=== PATIENT | female | born 1950 | race Caucasian/White ===

== ENCOUNTER 2025-08-10 22:04 | Inpatient (IN) | payer MEDICARE, OTHER ==
[~2025-08-10] VITALS: Ht 162.6 cm; Wt 53.5 kg
[2025-08-10 23:00] LABS: PLATELET COUNT (AUTO) 204 K/uL (179-408); RED BLOOD CELL COUNT(AUTO) 4.05 MIL/uL (3.63-4.92); RED CELL DISTRIBUTION WIDTH 13.2 % (12.3-17.7); WHITE BLOOD COUNT (AUTO) 4.6 K/uL (3.8-11.8)
[2025-08-10 23:12] LABS: ASPARTATE AMINOTRANSFERASE 12 U/L (15-37); CREATININE 0.9 mg/dL (0.6-1.3); SODIUM SERUM 137 mmol/L (136-145); TOTAL PROTEIN, SERUM 7.3 g/dL (6.4-8.2); UREA NITROGEN, BLOOD 21 mg/dL (7-18)
[2025-08-10 23:30] LABS: ETHANOL < 3 MG/DL (0-10)
[2025-08-10] MEDS ORDERED: TRAZ-182 PO (23:47)
[2025-08-10] MEDS ORDERED: SACU1TAB7 PO (23:47)
[2025-08-10] MEDS ORDERED: INSU100V7 SQ (23:47)
[2025-08-10] MEDS ORDERED: SIMV5TAB59 PO (23:47)
[2025-08-10] MEDS ORDERED: APIX5TAB PO (23:47)
[2025-08-10] MEDS ORDERED: PANT40TA49 PO (23:47)
[2025-08-10] MEDS ORDERED: DULO40CA2 PO (23:47)
[2025-08-11 00:25] LABS: *BILIRUBIN,URIN NEGATIVE (NEGATIVE); *CLARITY,URINE CLEAR (CLEAR); *COLOR,URINE YELLOW (YELLOW); *KETONES,URINE 2+ (NEGATIVE); *PROTEIN,URINE NEGATIVE (NEGATIVE); *UROBILINOGEN,URINE 0.2 E.U./dl (NORMAL); LEUKOCYTE ESTERASE ,URINE NEGATIVE (NEGATIVE); NITRITE, URINE NEGATIVE (NEGATIVE); UGLUCOSE 3+ (NEGATIVE)
[2025-08-11 00:28] LABS: *BLOOD, URINE TRACE (NEGATIVE)
[2025-08-11 00:32] LABS: *AMPHETAMINE, URINE NEGATIVE (NEGATIVE); *BARBITURATE, URINE NEGATIVE (NEGATIVE); *BENZODIAZEPINE, URINE NEGATIVE (NEGATIVE); *CANNABINOID, URINE NEGATIVE (NEGATIVE); *COCCAINE, URINE NEGATIVE (NEGATIVE); *OPIATE, URINE NEGATIVE (NEGATIVE); *PHENCYCLIDINE SCREEN,URINE NEGATIVE (NEGATIVE); FENTANYL, URINE NEGATIVE (NEGATIVE)
[2025-08-11 00:42] LABS: SQUAMOUS EPITHELIAL CELL,UR MODERATE /HPF (NONE SEEN)
[2025-08-11 01:00] VITALS: BP 155/77
[2025-08-11] MEDS ORDERED: DEXTROSE 50% 50 ML DISP.SYRIN IV PRN ×2 (01:30→10:00)
[2025-08-11] MEDS ORDERED: ONDANSETRON 4 MG/2 ML VIAL IV PRN (01:30)
[2025-08-11] MEDS ORDERED: MAGNESIUM HYDROXIDE 30 ML LIQUID UDC PO PRN (01:30)
[2025-08-11] MEDS: IV NS 1000 ML 1,000 ML IV SCH (03:00)
[2025-08-11 03:16] VITALS: BP 149/61; TEMP 98.7; O2SAT 98
[2025-08-11] MEDS: QUETIAPINE FUMARATE 25 MG TABLET PO ONE ×2 (03:34→13:55)
[2025-08-11] MEDS: ACETAMINOPHEN 325 MG TABLET PO PRN (05:07)
[2025-08-11] MEDS: PANTOPRAZOLE SODIUM 40 MG TABLET.DR PO SCH (06:02)
[2025-08-11] MEDS: BLOOD SUGAR DIAGNOSTIC 1 EACH STRIP VI SCH ×2 (06:34→12:19)
[2025-08-11 06:40] LABS: PLATELET COUNT (AUTO) 194 K/uL (179-408); RED BLOOD CELL COUNT(AUTO) 3.82 MIL/uL (3.63-4.92); RED CELL DISTRIBUTION WIDTH 13.0 % (12.3-17.7); WHITE BLOOD COUNT (AUTO) 6.1 K/uL (3.8-11.8)
[2025-08-11 07:16] LABS: CREATININE 1.2 mg/dL (0.6-1.3); SODIUM SERUM 135 mmol/L (136-145); UREA NITROGEN, BLOOD 26 mg/dL (7-18)
[2025-08-11 07:47] VITALS: BP 129/60; TEMP 98.1; O2SAT 99
[2025-08-11] MEDS: INSULIN REGULAR, HUMAN 1000 UNIT/10 ML VIAL SQ PRN ×2 (08:17→12:26)
[2025-08-11] MEDS: APIXABAN 5 MG TABLET PO SCH (08:28)
[2025-08-11] MEDS: SACUBITRIL/VALSARTAN 49 MG-51 MG TABLET PO SCH (08:37)
[2025-08-11] MEDS: CULTURELLE CAPSULE PO SCH (10:24)
[2025-08-11 12:02] VITALS: BP 128/69; TEMP 97.8; O2SAT 97
[2025-08-11] MEDS: CIPROFLOXACIN IV 200 ML IV SCH (16:12)
[2025-08-11] MEDS: diphenhydrAMINE 25 MG CAP PO PRN (17:29)
[2025-08-11] MEDS: HYDROCORTISONE 1% CREAM 30 GM TUBE TP SCH (18:23)
[2025-08-11 19:30] VITALS: BP 114/52; TEMP 98.1; O2SAT 99
[2025-08-11] MEDS: SULFAMETH/TRIMETH 800/160 MG TABLET PO SCH (20:15)
[2025-08-11] MEDS: TRAZODONE 100 MG TABLET PO SCH (20:15)
[2025-08-11] MEDS: INSULIN REGULAR, HUMAN 300 UNITS/3 ML VIAL SQ PRN (20:34)
[2025-08-11] MEDS: INSULIN GLARGINE,HUM 300 UNITS/3 ML CARTRIDGE SQ SCH (20:34)
[2025-08-12] VITALS (7 sets, daily range): BP systolic 105–125; BP diastolic 45–71; TEMP 97.3–98.2; O2SAT 94–99
[2025-08-12] MEDS: LEVOTHYROXINE SODIUM 25 MCG TABLET PO SCH (06:02)
[2025-08-12 06:36] LABS: PLATELET COUNT (AUTO) 193 K/uL (179-408); RED BLOOD CELL COUNT(AUTO) 3.84 MIL/uL (3.63-4.92); RED CELL DISTRIBUTION WIDTH 12.9 % (12.3-17.7); WHITE BLOOD COUNT (AUTO) 5.9 K/uL (3.8-11.8)
[2025-08-12 07:05] LABS: CREATININE 0.8 mg/dL (0.6-1.3); SODIUM SERUM 138 mmol/L (136-145); UREA NITROGEN, BLOOD 22 mg/dL (7-18)
[2025-08-12] MEDS: LORAZEPAM 0.5 MG TABLET PO PRN (13:40)
[2025-08-12] MEDS: DIVALPROEX 125 MG TABLET.DR PO SCH (13:40)
[2025-08-13 00:33] VITALS: BP 103/50; TEMP 97.5; O2SAT 96
[2025-08-13 05:14] VITALS: BP 103/57; TEMP 98.2; O2SAT 97
[2025-08-13 06:54] LABS: PLATELET COUNT (AUTO) 198 K/uL (179-408); RED BLOOD CELL COUNT(AUTO) 4.02 MIL/uL (3.63-4.92); RED CELL DISTRIBUTION WIDTH 13.0 % (12.3-17.7); WHITE BLOOD COUNT (AUTO) 5.3 K/uL (3.8-11.8)
[2025-08-13 07:03] LABS: CREATININE 1.0 mg/dL (0.6-1.3); SODIUM SERUM 138 mmol/L (136-145); UREA NITROGEN, BLOOD 24 mg/dL (7-18)
[2025-08-13 07:57] VITALS: BP 155/65; TEMP 98.4; O2SAT 99
[2025-08-13] MEDS ORDERED: INSU100V28 SQ ×2 (08:11)
[2025-08-13] MEDS ORDERED: INSU100V7 SQ (08:11)
[2025-08-13 11:24] VITALS: BP 111/66; TEMP 97.7; O2SAT 97
[2025-08-13 15:12] VITALS: BP 118/90; TEMP 98; O2SAT 96
[2025-08-13 19:43] VITALS: BP 143/74; TEMP 97.8; O2SAT 97
[2025-08-13] MEDS: INSULIN GLARGINE,HUM 300 UNITS/3 ML CARTRIDGE SQ SCH (20:52)
[2025-08-13] MEDS ORDERED: LITHIUM OROTATE PO PRN (22:45)
[2025-08-13] MEDS ORDERED: NIACINAMIDE 500 MG PO PRN (22:45)
[2025-08-13] MEDS ORDERED: INOSITOL PO PRN (22:45)
[2025-08-14 00:28] VITALS: BP 112/55; TEMP 98; O2SAT 96
[2025-08-14 06:02] VITALS: BP 138/66; TEMP 97.8; O2SAT 97
[2025-08-14 06:46] LABS: PLATELET COUNT (AUTO) 198 K/uL (179-408); RED BLOOD CELL COUNT(AUTO) 4.26 MIL/uL (3.63-4.92); RED CELL DISTRIBUTION WIDTH 13.2 % (12.3-17.7); WHITE BLOOD COUNT (AUTO) 4.2 K/uL (3.8-11.8)
[2025-08-14 07:03] LABS: CREATININE 1.1 mg/dL (0.6-1.3); SODIUM SERUM 137 mmol/L (136-145); UREA NITROGEN, BLOOD 32 mg/dL (7-18)
[2025-08-14 07:12] LABS: BASOPHILS % (MANUAL) 1 % (0-2); EOSINOPHILS % (MANUAL) 2 % (0-8); LYMPHOCYTES % (MANUAL) 26 % (20-40); MONOCYTES % (MANUAL) 16 % (2-10); NEUTROPHILS % (MANUAL) 56 % (42-75); PLATELET ESTIMATE ADEQUATE
[2025-08-14 08:00] VITALS: BP 114/59; TEMP 98.6; O2SAT 99
[2025-08-14] MEDS ORDERED: INOSITOL PO PRN (08:55)
[2025-08-14] MEDS ORDERED: NIACINAMIDE 500 MG PO PRN (08:57)
[2025-08-14] MEDS: buPROPion XL 150 MG TAB.SR.24H PO SCH (10:18)
[2025-08-14] MEDS: FOLIC ACID 1 MG TABLET PO SCH (10:18)
[2025-08-14] MEDS: FERROUS SULFATE 325 MG TABEC PO SCH (10:19)
[2025-08-14 10:49] LABS: *BILIRUBIN,URIN NEGATIVE (NEGATIVE); *BLOOD, URINE NEGATIVE (NEGATIVE); *CLARITY,URINE CLEAR (CLEAR); *COLOR,URINE YELLOW (YELLOW); *KETONES,URINE NEGATIVE (NEGATIVE); *PROTEIN,URINE NEGATIVE (NEGATIVE); *UROBILINOGEN,URINE 0.2 E.U./dl (NORMAL); LEUKOCYTE ESTERASE ,URINE NEGATIVE (NEGATIVE); NITRITE, URINE NEGATIVE (NEGATIVE); UGLUCOSE 2+ (NEGATIVE)
[2025-08-14 11:23] LABS: SQUAMOUS EPITHELIAL CELL,UR FEW /HPF (NONE SEEN)
[2025-08-14 11:52] VITALS: BP 104/44; TEMP 98.6; O2SAT 99
[2025-08-14] MEDS ORDERED: BUPR-53 PO (15:12)
[2025-08-14] MEDS ORDERED: Patient May Use Own Med- Md Ok PO ×2 (15:12)
[2025-08-14] MEDS ORDERED: FOLI1TAB94 PO (15:12)
[2025-08-14] MEDS ORDERED: PANT40TA49 PO (15:12)
[2025-08-14] MEDS ORDERED: LEVO25TA9 PO (15:12)
[2025-08-14] MEDS ORDERED: LORA-258 PO (15:12)
[2025-08-14] MEDS ORDERED: TRAZ-257 PO (15:12)
[2025-08-14] MEDS ORDERED: FERR325T28 PO (15:12)
[2025-08-14] MEDS ORDERED: LACT1CAP57 PO (15:12)
[2025-08-14] MEDS ORDERED: INSU100V28 SQ ×2 (16:59)
[2025-08-14] MEDS ORDERED: LORA-259 PO (17:01)
[2025-08-14] MEDS ORDERED: MAGN100T PO (17:32)
[2025-08-14] MEDS ORDERED: [UNRECOGNIZED DRUG - OTHER] PO (17:33)
[2025-08-14] MEDS ORDERED: GABA PO (17:35)
[2025-08-14] MEDS ORDERED: [UNRECOGNIZED DRUG - OTHER] PO (17:36)
[2025-08-14] MEDS ORDERED: NIAC500T40 PO (17:37)
[2025-08-14] MEDS ORDERED: INOSITOL PO (17:39)
[2025-08-14] MEDS ORDERED: [UNRECOGNIZED DRUG - OTHER] PO (17:40)
[2025-08-14] MEDS ORDERED: [UNRECOGNIZED DRUG - OTHER] PO (17:41)
[2025-08-14] MEDS ORDERED: [UNRECOGNIZED DRUG - OTHER] PO (17:43)
[2025-08-14] MEDS ORDERED: BLOO-668 IN (17:45)
[2025-08-14] MEDS ORDERED: DEXT50DI5 IV (17:46)
[2025-08-14] MEDS ORDERED: MAGNESIUM GLYCINATE 200 MG PO SCH (21:00)
[2025-08-14] MEDS ORDERED: [UNRECOGNIZED DRUG - OTHER] PO SCH (21:00)
[2025-08-14] MEDS ORDERED: GABA PO SCH (21:00)
[2025-08-14] MEDS ORDERED: [UNRECOGNIZED DRUG - OTHER] PO SCH (21:00)
== END 2025-08-14 15:57 | DRG 637 ==
LOC: ER 22:15 → TELE3 08-11 01:37 → MEDSURG3 08-14 10:05
PROVIDERS: ATTEND Nurse Practitioner Acute Care
DX: E11.65 Type 2 diabetes mellitus with hyperglycemia (principal); G93.41 Metabolic encephalopathy; I50.22 Chronic systolic (congestive) heart failure; I42.9 Cardiomyopathy, unspecified; F03.94 Unspecified dementia, unspecified severity, with anxiety; F03.93 Unspecified dementia, unspecified severity, with mood disturbance; S22.42XD Multiple fractures of ribs, left side, subsequent encounter for fracture with routine healing; W19.XXXD Unspecified fall, subsequent encounter; M06.9 Rheumatoid arthritis, unspecified; Z79.4 Long term (current) use of insulin; Z79.01 Long term (current) use of anticoagulants; E03.9 Hypothyroidism, unspecified; E86.0 Dehydration; I48.0 Paroxysmal atrial fibrillation; Z79.899 Other long term (current) drug therapy; Z95.810 Presence of automatic (implantable) cardiac defibrillator; R35.0 Frequency of micturition; Z88.0 Allergy status to penicillin; L90.0 Lichen sclerosus et atrophicus; Z98.1 Arthrodesis status; M51.369 Other intervertebral disc degeneration, lumbar region without mention of lumbar back pain or lower extremity pain; R29.6 Repeated falls; Z91.119 Patient's noncompliance with dietary regimen due to unspecified reason; Z91.A48 Caregiver's other noncompliance with patient's medication regimen for other reason
CPT/HCPCS: 36415; 70030-TC; 70450; 71045; 82746; 83605; 83735; 84100; 84443; 84484; 85025; 85730; 87040; 87086; A4663; G0378; G0480; J0744; J1815; J7040; Q0163

== ENCOUNTER 2025-08-14 09:45 | Inpatient (IN) | payer MEDICARE, OTHER ==
[~2025-08-14] VITALS: Ht 162.6 cm; Wt 53.5 kg
[~2025-08-14 09:45] MED LIST: APIX5TAB PO; DULO40CA2 PO; INSU100V28 SQ; INSU100V7 SQ; PANT40TA49 PO; SACU1TAB7 PO; SIMV5TAB59 PO; TRAZ-182 PO
[2025-08-14 10:38] VITALS: BP 114/59; TEMP 98.6
[2025-08-14 11:06] VITALS: BP 114/59; TEMP 98.6
[2025-08-14] MEDS ORDERED: Patient May Use Own Med- Md Ok PO ×2 (15:12)
[2025-08-14] MEDS ORDERED: LORA-258 PO (15:12)
[2025-08-14] MEDS ORDERED: LEVO25TA9 PO (15:12)
[2025-08-14] MEDS ORDERED: LACT1CAP57 PO (15:12)
[2025-08-14] MEDS ORDERED: BUPR-53 PO (15:12)
[2025-08-14] MEDS ORDERED: TRAZ-257 PO (15:12)
[2025-08-14] MEDS ORDERED: PANT40TA49 PO (15:12)
[2025-08-14] MEDS ORDERED: FERR325T28 PO (15:12)
[2025-08-14] MEDS ORDERED: FOLI1TAB94 PO (15:12)
[2025-08-14 16:45] VITALS: BP 109/56; TEMP 97.4; O2SAT 99
[2025-08-14] MEDS ORDERED: INSU100V28 SQ ×2 (16:59)
[2025-08-14] MEDS ORDERED: LORA-259 PO (17:01)
[2025-08-14] MEDS ORDERED: MAGN100T PO (17:32)
[2025-08-14] MEDS ORDERED: [UNRECOGNIZED DRUG - OTHER] PO (17:33)
[2025-08-14] MEDS ORDERED: GABA PO (17:35)
[2025-08-14] MEDS ORDERED: [UNRECOGNIZED DRUG - OTHER] PO (17:36)
[2025-08-14] MEDS ORDERED: NIAC500T40 PO (17:37)
[2025-08-14] MEDS ORDERED: INOSITOL PO (17:39)
[2025-08-14] MEDS ORDERED: [UNRECOGNIZED DRUG - OTHER] PO (17:40)
[2025-08-14] MEDS ORDERED: [UNRECOGNIZED DRUG - OTHER] PO (17:41)
[2025-08-14] MEDS ORDERED: [UNRECOGNIZED DRUG - OTHER] PO (17:43)
[2025-08-14] MEDS ORDERED: BLOO-668 IN (17:45)
[2025-08-14] MEDS ORDERED: DEXT50DI5 IV (17:46)
[2025-08-14] MEDS ORDERED: DEXTROSE 50% 50 ML DISP.SYRIN IV PRN (18:45)
[2025-08-14] MEDS ORDERED: LORAZEPAM 1 MG TABLET PO PRN (18:45)
[2025-08-14] MEDS: SACUBITRIL/VALSARTAN 49 MG-51 MG TABLET PO SCH (20:36)
[2025-08-14] MEDS: CULTURELLE CAPSULE PO SCH (20:36)
[2025-08-14] MEDS: TRAZODONE 100 MG TABLET PO SCH (20:38)
[2025-08-14] MEDS: [UNRECOGNIZED DRUG - OTHER] PO SCH (20:39)
[2025-08-14] MEDS: APIXABAN 5 MG TABLET PO SCH (20:39)
[2025-08-14] MEDS: SIMVASTATIN 20 MG TABLET PO SCH (20:39)
[2025-08-14] MEDS: GABA PO SCH (20:40)
[2025-08-14] MEDS: INSULIN GLARGINE,HUM 300 UNITS/3 ML CARTRIDGE SQ SCH (20:45)
[2025-08-14] MEDS: BLOOD SUGAR DIAGNOSTIC 1 EACH STRIP VI SCH (20:46)
[2025-08-14] MEDS: INSULIN REGULAR, HUMAN 1000 UNIT/10 ML VIAL SQ PRN (20:47)
[2025-08-14 21:27] VITALS: BP 106/52; TEMP 98.1; O2SAT 96
[2025-08-15] MEDS: LORAZEPAM 0.5 MG TABLET PO PRN (00:20)
[2025-08-15] MEDS: LEVOTHYROXINE SODIUM 25 MCG TABLET PO SCH (06:14)
[2025-08-15] MEDS: PANTOPRAZOLE SODIUM 40 MG TABLET.DR PO SCH (06:14)
[2025-08-15 06:32] VITALS: BP 107/56; TEMP 98.2; O2SAT 98
[2025-08-15 08:00] VITALS: BP 120/77; TEMP 98.1; O2SAT 97
[2025-08-15 08:01] LABS: PLATELET COUNT (AUTO) 191 K/uL (179-408); RED BLOOD CELL COUNT(AUTO) 4.24 MIL/uL (3.63-4.92); RED CELL DISTRIBUTION WIDTH 13.1 % (12.3-17.7); WHITE BLOOD COUNT (AUTO) 4.2 K/uL (3.8-11.8)
[2025-08-15] MEDS: FERROUS SULFATE 325 MG TABEC PO SCH (08:14)
[2025-08-15] MEDS: buPROPion XL 150 MG TAB.SR.24H PO SCH (08:14)
[2025-08-15] MEDS: FOLIC ACID 1 MG TABLET PO SCH (08:15)
[2025-08-15 08:17] LABS: CREATININE 1.0 mg/dL (0.6-1.3); SODIUM SERUM 135 mmol/L (136-145); UREA NITROGEN, BLOOD 37 mg/dL (7-18)
[2025-08-15 16:47] VITALS: BP 109/61; TEMP 98.1; O2SAT 99
[2025-08-15] MEDS: TRAMADOL HCL 50 MG TABLET PO PRN (18:27)
[2025-08-15] MEDS: INSULIN REGULAR, HUMAN 300 UNITS/3 ML VIAL SQ PRN (20:30)
[2025-08-15 21:44] VITALS: BP 110/56; TEMP 98; O2SAT 98
[2025-08-16] MEDS: INOSITOL PO PRN (01:00)
[2025-08-16] MEDS: LITHIUM OROTATE PO PRN (01:01)
[2025-08-16] MEDS: NIACINAMIDE 500 MG PO PRN (01:01)
[2025-08-16 06:56] VITALS: BP 104/64; TEMP 97.9; O2SAT 95
[2025-08-16 08:02] VITALS: BP 112/82; TEMP 97.9; O2SAT 93
[2025-08-16 15:44] VITALS: BP 98/51; TEMP 97.8; O2SAT 93
[2025-08-16 18:21] VITALS: BP 116/56; TEMP 97.6; O2SAT 93
[2025-08-16 19:35] VITALS: BP 108/56; TEMP 97.6; O2SAT 96
[2025-08-16] MEDS: ONDANSETRON HCL 4 MG TABLET PO PRN (23:39)
[2025-08-17 06:13] VITALS: BP 99/46; TEMP 97.7; O2SAT 97
[2025-08-17 08:00] VITALS: BP 102/52; TEMP 98; O2SAT 98
[2025-08-17 16:01] VITALS: BP 99/46; TEMP 97.7; O2SAT 98
[2025-08-17 20:00] VITALS: BP 102/54; TEMP 98; O2SAT 99
[2025-08-17] MEDS: LIDOCAINE 5% OINT 35.44 GM TUBE TOP PRN (20:24)
[2025-08-18 05:43] VITALS: BP 118/44; TEMP 97.3; O2SAT 98
[2025-08-18 07:27] VITALS: BP 97/50; TEMP 97.6; O2SAT 98
[2025-08-18 16:00] VITALS: BP 93/59; TEMP 98; O2SAT 97
[2025-08-18 22:44] VITALS: BP 82/38; TEMP 97.7; O2SAT 97
[2025-08-19 05:00] VITALS: BP 132/61; TEMP 97.5; O2SAT 99
[2025-08-19 08:00] VITALS: BP 98/58; TEMP 97.8; O2SAT 97
[2025-08-19] MEDS ORDERED: PANT40TA49 PO (15:14)
[2025-08-19] MEDS ORDERED: FOLI0.8C PO (15:15)
[2025-08-19] MEDS ORDERED: INSU3INS6 SQ (15:16)
[2025-08-19] MEDS ORDERED: LEVO50TA8 PO (15:17)
[2025-08-19] MEDS ORDERED: MULT-1119 PO (15:18)
[2025-08-19] MEDS ORDERED: CHOL200010 PO (15:19)
[2025-08-19] MEDS ORDERED: POLY17PO4 PO (15:20)
[2025-08-19] MEDS ORDERED: CYCL30DR EACHEYE (15:23)
[2025-08-19] MEDS ORDERED: LIDO5JEL3 VG (15:25)
[2025-08-19] MEDS ORDERED: ONDA-104 PO (15:25)
[2025-08-19] MEDS ORDERED: ACET-73 PO (15:26)
[2025-08-19] MEDS ORDERED: OMEG10006 PO (15:27)
[2025-08-19] MEDS ORDERED: BENZ-38 PO (15:27)
[2025-08-19] MEDS ORDERED: [UNRECOGNIZED DRUG - OTHER] PO (15:28)
[2025-08-19] MEDS ORDERED: [UNRECOGNIZED DRUG - OTHER] VG (15:30)
[2025-08-19] MEDS ORDERED: THIA100T88 PO (15:30)
[2025-08-19] MEDS ORDERED: CALC-896 PO (15:31)
[2025-08-19] MEDS ORDERED: VITA-339 PO (15:31)
[2025-08-19] MEDS ORDERED: COPP2TAB PO (15:33)
[2025-08-19] MEDS ORDERED: PHOSPHATIDYL SERINE PO (15:36)
[2025-08-19] MEDS ORDERED: [UNRECOGNIZED DRUG - OTHER] PO (15:38)
[2025-08-19] MEDS ORDERED: VITAMIN B PO (15:38)
[2025-08-19 16:00] VITALS: BP 97/65; TEMP 97.2; O2SAT 97
[2025-08-19] MEDS: [UNRECOGNIZED DRUG - OTHER] PO SCH (17:34)
[2025-08-19] MEDS: TRIAMCINOLONE ACET 0.1% OINT 15 GM TUBE TOP SCH (17:47)
[2025-08-19 19:30] VITALS: BP 98/56; TEMP 98.2; O2SAT 95
[2025-08-19] MEDS: ACETAMINOPHEN 325 MG TABLET PO PRN (20:42)
[2025-08-20 06:17] VITALS: BP 113/56; TEMP 97.5; O2SAT 95
[2025-08-20] MEDS: BISACODYL 5 MG TABLET.DR PO PRN (06:27)
[2025-08-20 08:25] VITALS: BP 125/60; TEMP 97.6; O2SAT 95
[2025-08-20 16:08] VITALS: BP 98/49; TEMP 97.6; O2SAT 97
[2025-08-20 20:43] VITALS: BP 100/49; TEMP 97.3; O2SAT 95
[2025-08-21 06:14] VITALS: BP 131/68; TEMP 97.5; O2SAT 99
[2025-08-21 07:49] VITALS: BP 123/69; TEMP 97.6; O2SAT 95
[2025-08-21 16:21] VITALS: BP 112/60; TEMP 97.7; O2SAT 97
[2025-08-21 20:01] VITALS: BP 92/53; TEMP 97.7; O2SAT 100
[2025-08-21 20:20] LABS: PLATELET COUNT (AUTO) 179 K/uL (179-408); RED BLOOD CELL COUNT(AUTO) 3.52 MIL/uL (3.63-4.92); RED CELL DISTRIBUTION WIDTH 13.0 % (12.3-17.7); WHITE BLOOD COUNT (AUTO) 4.8 K/uL (3.8-11.8)
[2025-08-21 20:38] LABS: ASPARTATE AMINOTRANSFERASE 27 U/L (15-37); CREATININE 0.9 mg/dL (0.6-1.3); SODIUM SERUM 137 mmol/L (136-145); TOTAL PROTEIN, SERUM 6.6 g/dL (6.4-8.2); UREA NITROGEN, BLOOD 28 mg/dL (7-18)
[2025-08-22 05:06] VITALS: BP 124/57; TEMP 97.6; O2SAT 95
[2025-08-22 08:00] VITALS: BP 130/61; TEMP 97.7; O2SAT 95
[2025-08-22] MEDS: DOCUSATE SODIUM 100 MG/10 ML LIQUID UDC GT SCH (20:25)
[2025-08-22 21:19] VITALS: BP 114/54; TEMP 98; O2SAT 96
[2025-08-23 07:04] VITALS: BP 114/60; TEMP 97.4; O2SAT 94
[2025-08-23 08:00] VITALS: BP 132/77; TEMP 97; TEMP 97.7; O2SAT 96
[2025-08-23 16:43] VITALS: BP 99/52; TEMP 97.7; O2SAT 96
[2025-08-23 22:31] VITALS: BP 111/63; TEMP 98.5; O2SAT 98
[2025-08-24 06:50] VITALS: BP 139/62; TEMP 97.9; O2SAT 98
[2025-08-24 08:00] VITALS: BP 102/52; TEMP 97.5; O2SAT 99
[2025-08-24] MEDS: DOCUSATE SODIUM 100 MG CAPSULE PO SCH (08:44)
[2025-08-24] MEDS ORDERED: DOCUSATE SODIUM 100 MG/10 ML LIQUID UDC PO SCH (09:00)
[2025-08-24 16:00] VITALS: BP 93/47; TEMP 97.8; O2SAT 99
[2025-08-24 20:37] VITALS: BP 114/55; TEMP 97.8; O2SAT 98
[2025-08-24] MEDS: [UNRECOGNIZED DRUG - OTHER] PO SCH (21:58)
[2025-08-24 23:17] LABS: *BILIRUBIN,URIN NEGATIVE (NEGATIVE); *BLOOD, URINE NEGATIVE (NEGATIVE); *CLARITY,URINE CLEAR (CLEAR); *COLOR,URINE YELLOW (YELLOW); *KETONES,URINE NEGATIVE (NEGATIVE); *PROTEIN,URINE NEGATIVE (NEGATIVE); *UROBILINOGEN,URINE 0.2 E.U./dl (NORMAL); LEUKOCYTE ESTERASE ,URINE NEGATIVE (NEGATIVE); NITRITE, URINE NEGATIVE (NEGATIVE); UGLUCOSE 3+ (NEGATIVE)
[2025-08-24 23:45] LABS: SQUAMOUS EPITHELIAL CELL,UR MODERATE /HPF (NONE SEEN)
[2025-08-25 06:38] VITALS: BP 101/55; TEMP 98.2; O2SAT 96
[2025-08-25 07:40] VITALS: BP_SYST 114; BP_SYST 165; BP_DIAS 64; BP_DIAS 77; TEMP 97.6; O2SAT 97
[2025-08-25 16:00] VITALS: BP 103/55; TEMP 98.7; O2SAT 97
[2025-08-25 21:55] VITALS: BP 119/62; TEMP 97.6; O2SAT 97
[2025-08-26 06:57] VITALS: BP 112/65; TEMP 98; O2SAT 99
[2025-08-26 08:42] VITALS: BP 119/58; TEMP 97.9; O2SAT 96
[2025-08-26 16:10] VITALS: BP 94/55; TEMP 98.9; O2SAT 99
[2025-08-26 19:52] VITALS: BP 107/61; TEMP 97.9; O2SAT 97
[2025-08-27] MEDS: GUAIFENESIN/DEXTROMETHORPHAN 5 ML UDC PO PRN (01:00)
[2025-08-27 06:00] VITALS: BP 132/63; TEMP 97.3; O2SAT 98
[2025-08-27 08:05] VITALS: BP 120/66; TEMP 97.7; O2SAT 98
[2025-08-27 15:55] VITALS: BP 90/50; TEMP 97.6; O2SAT 97
[2025-08-27 20:05] VITALS: BP 126/45; TEMP 98.7; O2SAT 99
[2025-08-28 06:00] VITALS: BP 117/59; TEMP 98.2; O2SAT 95
[2025-08-28 07:57] VITALS: BP 160/63; TEMP 97.7; O2SAT 97
[2025-08-28 11:24] VITALS: TEMP 97.7
== END 2025-08-28 15:00 | disposition home health service (06) | DRG 71 ==
LOC: UNDODISIN 08-28 15:00
PROVIDERS: ADMIT Physical Medicine & Rehabilitation Pain Medicine; ATTEND Physical Medicine & Rehabilitation Pain Medicine
DX: G93.41 Metabolic encephalopathy (principal); F03.92 Unspecified dementia, unspecified severity, with psychotic disturbance; F03.94 Unspecified dementia, unspecified severity, with anxiety; I42.9 Cardiomyopathy, unspecified; I50.22 Chronic systolic (congestive) heart failure; E03.9 Hypothyroidism, unspecified; E11.65 Type 2 diabetes mellitus with hyperglycemia; F41.1 Generalized anxiety disorder; F91.9 Conduct disorder, unspecified; I48.0 Paroxysmal atrial fibrillation; Z79.01 Long term (current) use of anticoagulants; Z88.0 Allergy status to penicillin; Z95.810 Presence of automatic (implantable) cardiac defibrillator; K59.00 Constipation, unspecified; L43.9 Lichen planus, unspecified; R29.6 Repeated falls; R35.0 Frequency of micturition; R41.9 Unspecified symptoms and signs involving cognitive functions and awareness; F29 Unspecified psychosis not due to a substance or known physiological condition
CPT/HCPCS: 36415; 83735; 84100; 85025; 87086; 97535-GO-CO; A4663; J1815; Q0162